=== PATIENT | male | born 1970 | race Caucasian/White ===

== ENCOUNTER 2016-09-11 07:57 | Day surgery (SDC) | payer OTHER ==
[2016-09-09 18:15] LABS: HEMATOCRIT 43.6 % (40.0-51.0); HEMOGLOBIN 15.3 g/dL (13.6-17.8)
[2016-09-09 18:26] LABS: CALCIUM, SERUM 8.9 MG/DL (8.5-10.4); CHLORIDE, SERUM 109 MMOL/L (96-112); GFR AFRICAN AMERICAN 65 ML/MIN (>=60); GFR NON AFRICAN AMERICAN 56 ML/MIN (>=60); GLUCOSE, SERUM 95 MG/DL (60-99); POTASSIUM, SERUM 3.8 MMOL/L (3.5-5.3); SODIUM, SERUM 143 MMOL/L (135-148)
[2016-09-09 18:27] LABS: BUN (BLOOD UREA NITROGEN) 21 MG/DL (6-23); CO2 (CARBON DIOXIDE) 24 MMOL/L (24-34)
[~2016-09-11 07:57] MED LIST: ALLEGRA180 PO; EFFEX75 PO; FLEXERIL5 MG PO; IBU800 PO; LOP25 PO; NEUR300 PO; NORCO1 TA2 PO; RESTASIS OPH; TOPAMAX50 MG PO; TRICOR145 PO
== END 2016-09-11 12:44 | disposition home or self-care (01) ==
LOC: SDC 07:57
PROVIDERS: Ophthalmology
PROC: 08R83KZ Replacement of Right Cornea with Nonautologous Tissue Substitute, Percutaneous Approach (ICD-10-PCS; principal; 2016-09-11 09:30)
DX: H18.621 Keratoconus, unstable, right eye (principal); I10 Essential (primary) hypertension; E78.5 Hyperlipidemia, unspecified; F32.9 Major depressive disorder, single episode, unspecified; F17.290 Nicotine dependence, other tobacco product, uncomplicated; F41.9 Anxiety disorder, unspecified; G47.33 Obstructive sleep apnea (adult) (pediatric); E66.9 Obesity, unspecified; Z68.28 Body mass index [BMI] 28.0-28.9, adult; E78.00 Pure hypercholesterolemia, unspecified; Z98.890 Other specified postprocedural states
CPT/HCPCS: 80048; 85014; 85018; 87070; 87102; 87205; 88304; 88313; 93005; A9270-GY; J2250; J2405; J3010; V2785